=== PATIENT | male | born 1995 | race Caucasian/White ===

== ENCOUNTER 2017-04-16 11:10 | Emergency (ER) | payer BC ==
[~2017-04-16] VITALS: Ht 170.2 cm; Wt 65.8 kg
[2017-04-16 11:12] VITALS: BP_SYST 140
[2017-04-16] MEDS ORDERED: BACITRACIN 1 GM OINT TP ONE (11:15)
[2017-04-16] MEDS ORDERED: LIDOCAINE 1% 10 MG/ML, 20 ML MDV IJ ONE (11:15)
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
--- NOTE | 2017-04-16 11:16 | NUR ---
MD Henriquez at bedside.
--- NOTE | 2017-04-16 11:17 | NUR ---
Endorsed care to Ned RAMEY.
--- NOTE | 2017-04-16 11:17 | NUR ---
Laceration x 2 to Right wrist and to right thumb x 1. Bleeding controlled with pressure dsg. Addendum: 04/16/17 at 1229 by FABY 3 cm lac x 2 to right wrist. Tendon visible. Pt able to move wrist and fingers without difficulty. 2 cm lac to base of Right thumb.
--- NOTE | 2017-04-16 12:07 | NUR ---
Dr. Henriquez completed suture repair with sterile technique. 2 small pieces of glass removed by MD. Tendon visible, intact. Pt able to move all fingers and touch thumb with each. Cap refill <2 with good radial pulse present. Pt tolerated well.
--- NOTE | 2017-04-16 12:08 | NUR ---
EMT at bedside for dressing placement
[2017-04-16] MEDS ORDERED: CEFAZOLIN 1 GM IVPB PREMIX 50 ML IV ONE (12:15)
[2017-04-16 12:50] VITALS: BP_SYST 120
--- NOTE | 2017-04-16 12:50 | NUR ---
Patient given written and verbal discharge instructions and verbalizes understanding. ER MD discussed with patient the results and treatment provided. Patient in stable condition. ID arm band removed. IV catheter removed intact and dressing applied, no active bleeding. Rx of keflex given. Patient educated on pain management and to follow up with PMD. Pain Scale 0/10. Opportunity for questions provided and answered.
== END 2017-04-16 12:50 | disposition home or self-care (01) ==
LOC: SED 11:10
DX: S61.521A Laceration with foreign body of right wrist, initial encounter (principal); W22.8XXA Striking against or struck by other objects, initial encounter; Y93.89 Activity, other specified; Y92.89 Other specified places as the place of occurrence of the external cause; Y99.8 Other external cause status
CPT/HCPCS: 12044; 73130; 96365; 99285; J0690; J2001